=== PATIENT | male | born 1945 | race Caucasian/White ===

== ENCOUNTER 2017-01-15 12:25 | Observation (INO) | payer MEDICARE, BC ==
[~2017-01-15] VITALS: Ht 185.4 cm; Wt 140.1 kg
--- NOTE | ~2017-01-15 | CATH ---
Cardiac Diagnostic + PCI Report Demographics Patient Name JESSICA CARRILLO Gender Male E Date of 1945 Age 71 year(s) Patient Number [id number] Date of Study 01/15/2017 Visit Number [id number] Room Number 418 Corporate ID Ht 185.42 cm Wt 142.43 kg Accession Number [id number] BSA 2.61 m kg/m Referring Veda MARTIN Primary Physician Physician Juan Performing Veda MARTIN Secondary Physician Physician Juan Diagnostic Veda MARTIN Assisting Physician Physician Juan Interventional Veda MARTIN Physician Naval Designer Physician Juan Findings and Conclusions Diagnostic Findings and Conclusion 1. 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 2. Normal LVEDP. Diagnostic Recommendations 1. Immediate PCI of RCA. Interventional Findings and Conclusion 1. Successful PCI to RCA with 3.0 x 28 Synergy stent post dilated with 3.5 x 20 NC Emerge. Interventional Recommendations 1. DAPT Procedure Description The patient was brought to the diagnostic cardiac catheterization laboratory in the fasting, non-sedated state. Informed consent was obtained in the written and verbal form after the risks and benefits were explained. The patient had no further questions and agreed to proceed. The planned puncture-incision site(s) were shaved and prepped with ChloraPrep and draped in the usual sterile manner. Conscious sedation, supplemental oxygen, and pain control medications were delivered by a registered nurse under physician guidance. Surface ECG rhythm, blood pressure measurement, and pulse oximetry were monitored throughout the procedure. Arterial access. The right radial access site was infiltrated with lidocaine. The vessel was entered with the Seldinger technique. A 6F sheath was advanced into the vessel and used for catheter placement. Radial cocktail was administered per protocol. Selective left coronary angiography. A TIG catheter was advanced into the left coronary vessel ostium under Fluoroscopic guidance. Contrast was injected by hand. Images were obtained in multiple projections. Selective right coronary angiography. A TIG catheter was advanced into the right coronary vessel ostium under fluoroscopic guidance. Contrast was injected by hand. Images were obtained in multiple projections. Left heart catheterization. A Pigtail catheter was advanced across the aortic valve to the left ventricle under fluoroscopic guidance. Resting hemodynamics were obtained. Angioplasty and Stent Placement: A JR4 guiding catheter was used to intubate the vessel. A 0.14 BMW wire was then used to cross the lesion. A 2.75 x 15 Emerge balloon catheter was placed across the lesion and inflated. The balloon catheter was then removed. A 3.0 x 28 Synergy Drug Eluting Stent was placed and inflated. A 3.5 x 20 NC Emerge balloon was placed across the lesion and inflated. Post placement angiograms were performed. Arterial artery hemostasis was achieved with a TR band. The patient was transferred to a regular nursing floor via cart accompanied by a nurse. The patient left the laboratory in stable condition. Diagnostic Cath Status: Elective Procedure Procedure Type Diagnostic procedure:Angiography:, Coronary Angios w/[facility] PCI procedure:Drug Eluting Coronary Stent:, RCA Indications: Chest pain, Abnormal stress perfusion study, Hypertension and Diabetes. The procedure was explained in detail to the patient. Risks, complications and alternative treatments were reviewed. Written consent was obtained. Medications Reviewed with Patient prior to Procedure. Complications: No Complication. Angiographic Findings Dominance: Right Cardiac Arteries and Lesion Findings LMCA: Normal (0% Stenosis). LAD: Abnormal. Lesion on Mid LAD: 50% stenosis . Lesion on 1st Diag: Distal subsection.70% stenosis . LCx: Abnormal. Lesion on Mid CX: 30% stenosis . Lesion on Dist CX: 40% stenosis . Lesion on 2nd Ob Maanda: Proximal subsection.40% stenosis . RCA: Abnormal. Lesion on Prox RCA: 80% stenosis reduced to 0%. Pre procedure RICHARD III flow was noted. Post Procedure RICHARD III flow was present. The guidewire cross was successful.Culprit lesion. Devices used - BMW GUIDEWIRE 180CM. Number of passes: 1. - CATH BAL RX EMERGE 2.75X15. 1 inflation(s) to a max pressure of: 10 irma. - CATH STENT SYNERGY 3.0 X 28. 1 inflation(s) to a max pressure of: 16 irma. - CATH BAL RX NC EMERGE 3.5X20. 2 inflation(s) to a max pressure of: 18 irma. Lesion on Mid RCA: 40% stenosis . Coronary Tree Procedure Data Procedure Date Date: 01/15/2017Start: 01:38 PM Entry Locations - Percutaneous access was performed through the Right Radial artery (Primary location). A 6 Fr sheath was inserted. Hemostasis was successfully obtained using a TR band. Procedure Medications Order and Administration + + +---------+-------+ !Time !Medication !Dosage !Route ! + + +---------+-------+ !01/15/2017 !Versed !2 mg !I.V. ! !01:33 PM ! ! ! ! + + +---------+-------+ !01/15/2017 !Fentanyl !50 mcg !I.V. ! !01:34 PM ! ! ! ! + + +---------+-------+ !01/15/2017 !Oxygen !2 l/min !NC ! !01:34 PM ! ! ! ! + + +---------+-------+ !01/15/2017 !Sodium Chloride !10 ml !I.V. ! !01:34 PM ! ! ! ! + + +---------+-------+ !01/15/2017 !Versed !1 mg !I.V. ! !01:53 PM ! ! ! ! + + +---------+-------+ !01/15/2017 !Fentanyl !25 mcg !I.V. ! !01:53 PM ! ! ! ! + + +---------+-------+ !01/15/2017 !SF Radial Cocktail: 200mcg Nitro, 2.5 mg! !I.A. ! !01:55 PM !Verapamil, 5000u Heparin ! ! ! + + +---------+-------+ !01/15/2017 !Sodium Chloride !30 ml !I.V. ! !02:04 PM ! ! ! ! + + +---------+-------+ !01/15/2017 !Plavix (ACC_8) !600 mg !P.O. ! !02:05 PM ! ! ! ! + + +---------+-------+ !01/15/2017 !Heparin (ACC_3) !3000 !I.V. ! !02:05 PM ! !units ! ! + + +---------+-------+ !01/15/2017 !Heparin (ACC_3) !2000 !I.V. ! !02:29 PM ! !units ! ! + + +---------+-------+ Devices Used - A6F TIG CATHETERwas used for:Coronary Angios. - ACATH 6FR PIG 145 110CM CATHETERwas used for:LV Pressures. - AGUIDE CATHETER 6FR FR 4.0 100CMwas used for:RCA Intervention. Contrast Material - Isovue 12698 ml Fluoroscopy Time: Diagnostic: 6:06 minutes. Total: 6:06 minutes. Fluoroscopy Dose: Diagnostic: 1577 mGy. Total: 1577 mGy. Estimated Blood Loss: 13 ml. Medical History Performed Procedures and Imaging Results - Stress testing with SPECT MPIwas performed. Results were: Positive. Risk/Extent of ischemia was: Intermediate risk. Allergies - No known allergies. Risk Factors The patient risk factors include:hypertension, orally-treated diabetes mellitus, last creatinine: 1.2 mg/dl and creatinine clearance: 117.04 ml/min. Admission Data Admission Date: 01/15/2017 Admission Time: 02:36 PM Insurance Payors: Medicare. Clinical Evaluation Leading to Procedure - The patient's CAD presentation was assessed as: Unstable angina. - The patient's anginal syndrome during the past two weeks was assessed as: Class III according to the [place] Cardi[employer] Classification System (CCS). Anti-anginal medications were prescribed during the past two weeks. The medications are: Beta Blockers and Ca channel Blockers. Hemodynamics Condition: Rest O2 Consumption: Estimated: 305.18Heart Rate: 73 bpm Pressures (mmHg) +-----+ + !Site !Pressure ! +-----+ + !AO !102/62 (79) ! +-----+ + !LV !104/6 ,11 ! +-----+ + !AO !112/67 (87) ! +-----+ + !LV !112/5 ,8 ! +-----+ + Valve Gradients and Areas + +---------+---------+---------+ +---------+ + !Valve !Peak !Mean !Area !Index !Flow !Source ! + +---------+---------+---------+ +---------+ + !Aortic !2 !0 ! ! ! ! ! + +---------+---------+---------+ +---------+ + !Aortic !2 !0 ! ! ! ! ! + +---------+---------+---------+ +---------+ + Shunts Oxygen Values O2 Consumption 305.18 Discharge Data Discharge Date: 01/16/2017 Hospital Status: Inpatient Signatures
[2017-01-17] MEDS ORDERED: NORVASC5 MG PO (13:40)
[2017-01-17] MEDS ORDERED: MOBIC15 MG PO (13:41)
[2017-01-17] MEDS ORDERED: PROSCAR DPS5 MG PO (13:41)
[2017-01-17] MEDS ORDERED: GLUCOPHAGE1000 MG PO (13:41)
[2017-01-17] MEDS ORDERED: VALSARTAN-HCTZ1 EAC3 PO (13:41)
[2017-01-17] MEDS ORDERED: ZYLOPRIM-DPS300 MG PO (13:41)
[2017-01-17] MEDS ORDERED: FLOMAX DPS0.4 MG PO (13:41)
[2017-01-17] MEDS ORDERED: PLAVIX75 MG PO (13:42)
[2017-01-17] MEDS ORDERED: ASA CHILDREN'S81 MG PO (13:42)
[2017-01-17] MEDS ORDERED: COREG DPS12.5 MG PO (13:42)
[2017-01-17] MEDS ORDERED: XARELTO20 MG PO (13:42)
[2017-01-17] MEDS ORDERED: PANTOPRAZOLE SO40 MG PO (13:42)
[2017-01-17] MEDS ORDERED: LIPITOR DPS20 MG PO (13:42)
== END 2017-01-16 11:22 | disposition home or self-care (01) ==
LOC: SSS 12:25 → 4PCU 14:36 → SSS 16:24 → 4PCU 01-16 11:22
PROVIDERS: ADMIT Internal Medicine Cardiovascular Disease
DX: I25.110 Atherosclerotic heart disease of native coronary artery with unstable angina pectoris (principal); I48.2 Chronic atrial fibrillation; I10 Essential (primary) hypertension; E11.9 Type 2 diabetes mellitus without complications; Z79.899 Other long term (current) drug therapy